=== PATIENT | male | born 1985 | race Caucasian/White ===

== ENCOUNTER → 2020-05-23 | Outpatient (CLI) | payer BC ==
[~2020-05-23] MED LIST: ASCO100018 PO; CHOL10003 PO; CYAN50003 PO; FOLI0.8T2 PO; GREE150C PO; INDO50CA15 PO; LORA10TA75 PO
== END | disposition home or self-care (01) ==
LOC: STAR 09:31
PROVIDERS: ATTEND Surgery
DX: Z20.828 Contact with and (suspected) exposure to other viral communicable diseases (principal); K40.20 Bilateral inguinal hernia, without obstruction or gangrene, not specified as recurrent
CPT/HCPCS: 87635

== ENCOUNTER 2020-05-29 08:03 | Day surgery (SDC) | payer BC ==
[~2020-05-29] VITALS: Ht 180.3 cm; Wt 85.7 kg
[2020-05-29 08:28] VITALS: BP 120/79
[2020-05-29] MEDS ORDERED: LACTATED RINGERS 1,000 ML IV SCH (08:30)
[2020-05-29] MEDS ORDERED: CHLORHEXIDINE 15 ML UDC MM ONE (08:30)
[2020-05-29] MEDS ORDERED: ONDANSETRON 2MG/ML, 2ML IVPush PRN (09:00)
[2020-05-29] MEDS ORDERED: EPHEDRINE 50 MG/ML, 1ML IVPush PRN (09:00)
[2020-05-29] MEDS ORDERED: LABETALOL 5MG/ML, 20ML IV PRN (09:00)
[2020-05-29] MEDS ORDERED: FENTANYL PF 100 MCG/2ML IV PRN (09:00)
[2020-05-29] MEDS ORDERED: METHOCARBAMOL 1,000 MG in DEXTROSE 5% 100 ML IV PRN (09:00)
[2020-05-29] MEDS ORDERED: MEPERIDINE/PF 25MG/0.5ML IVPush PRN (09:00)
[2020-05-29] MEDS ORDERED: hydrALAzine 20 MG/ML, 1ML IV PRN (09:00)
[2020-05-29] MEDS ORDERED: PROMETHAZINE 25 MG/ML, 1ML IVPush PRN (09:00)
[2020-05-29] MEDS ORDERED: ACETAMINOPHEN 325 MG TABLET PO PRN (09:00)
[2020-05-29] MEDS ORDERED: MIDAZOLAM 1 MG/ML, 2ML ONE (10:32)
[2020-05-29] MEDS ORDERED: FENTANYL PF 250 MCG/5ML ONE (10:32)
[2020-05-29] MEDS ORDERED: NEOSTIGMINE 1 MG/ML, 10ML ONE (10:46)
[2020-05-29] MEDS ORDERED: ROCURONIUM 10 MG/ML,10ML ONE (10:46)
[2020-05-29] MEDS ORDERED: SUCCINYLCHOLINE 20 MG/ML, 10ML ONE (10:46)
[2020-05-29] MEDS ORDERED: KETOROLAC 30 MG/1 ML ONE (10:46)
[2020-05-29] MEDS ORDERED: CEFAZOLIN 1,000 MG ONE (10:46)
[2020-05-29] MEDS ORDERED: PROPOFOL 10 MG/ML, 20ML ONE (10:46)
[2020-05-29] MEDS ORDERED: DEXAMETHASONE 4 MG/ML, 1ML ONE (10:46)
[2020-05-29] MEDS ORDERED: GLYCOPYRROLATE 0.2MG/1ML, 5ML ONE (10:46)
[2020-05-29] MEDS ORDERED: ONDANSETRON 2MG/ML, 2ML ONE (10:46)
[2020-05-29] MEDS ORDERED: BUPIVACAINE/PF-EPI 0.25% 1:200K INFIL ONE ×2 (11:03→11:08)
[2020-05-29] MEDS ORDERED: FENTANYL PF 100 MCG/2ML ONE ×3 (11:59→12:39)
[2020-05-29] MEDS ORDERED: ACETAMINOPHEN 325 MG TABLET ONE (12:38)
[2020-05-29] MEDS ORDERED: OXYcodone 5 MG/5 ML ORAL.SOL UDC ONE ×2 (12:39→13:02)
[2020-05-29] MEDS: OXYcodone 5 MG/5 ML ORAL.SOL UDC PO PRN ×2 (12:50→13:03)
[2020-05-29] MEDS ORDERED: HYDROmorphone 1 MG/ML, 1ML INJ ONE (13:02)
[2020-05-29] MEDS: HYDROmorphone 1 MG/ML, 1ML INJ IVPush PRN ×2 (13:07→13:12)
== END 2020-05-29 14:10 | disposition home or self-care (01) ==
LOC: OUT 08:03
PROVIDERS: ATTEND Surgery
DX: K40.20 Bilateral inguinal hernia, without obstruction or gangrene, not specified as recurrent (principal); D17.6 Benign lipomatous neoplasm of spermatic cord; Z79.899 Other long term (current) drug therapy; Z72.89 Other problems related to lifestyle; Z87.891 Personal history of nicotine dependence; Z82.49 Family history of ischemic heart disease and other diseases of the circulatory system; Z98.890 Other specified postprocedural states
CPT/HCPCS: 49650; C1727; C1781; J0330; J0690; J1100; J1170; J1885; J2250; J2405; J2704; J2710; J3010; J7120